=== PATIENT | female | born 1990 | race American Indian/Alaskan Native ===

== ENCOUNTER 2021-02-23 09:53 | Outpatient (CLI) | payer OTHER ==
[2021-02-23 10:46] VITALS: BP 135/81
[2021-02-23] MEDS ORDERED: LACTATED RINGERS 1,000 ML ONE (11:03)
[2021-02-23 11:52] LABS: Basophils % (Auto) 0.2 % (0.0-1.8); Eosinophils # (Auto) 0.1 K/mm3 (0.0-0.4); Eosinophils % (Auto) 0.8 % (0.0-4.3); Hematocrit 35.5 % (30.3-42.9); Hemoglobin 11.2 gm/dl (10.1-14.3); Lymphocytes % (Auto) 12.8 % (13.4-35.0); Mean Corpuscular HGB Conc 32 % (30-34); Mean Corpuscular Volume 94 fl (79-97); Monocytes # (Auto) 0.4 K/mm3 (0.0-0.8); Platelet Count 236 K/mm3 (140-440); Red Blood Count 3.76 M/mm3 (3.65-5.03); Red Cell Distribution Width 13.5 % (13.2-15.2)
[2021-02-23] MEDS ORDERED: LACTATED RINGERS 1000 ML IV SOLN IV SCH (12:30)
[2021-02-23 13:39] LABS: Bacteria,Urine 2+ /HPF (Negative); Bilirubin,Urine NEG (Negative); Blood,Urine LG (Negative); Color,Urine Yellow (Yellow); Mucus,Urine 1+ /HPF; Urobilinogen,Urine < 2.0 mg/dL (<2.0)
--- NOTE | 2021-02-23 17:59 | Ultrasound Report ---
OB ultrasound INDICATION: Vaginal bleeding FINDINGS: There is a single live intrauterine in cephalic position. PAVEL measures 10.5 cm. G rade 2 placenta posterior in location. heart rate is 1 61 bpm. Ultrasound age 20 weeks 4 days. Estimated weight 1113 g. Biophysical profile 8 out of 8 IMPRESSION: Single live intrauterine . Biophysical profile 8 out of 8 Signer Name: Adria Cormier MD Signed: 02/23/2021 5:54 PM Workstation Name: [facility]
--- NOTE | 2021-02-23 17:59 | Ultrasound Report ---
OB ultrasound INDICATION: Vaginal bleeding FINDINGS: There is a single live intrauterine in cephalic position. PAVEL measures 10.5 cm. G rade 2 placenta posterior in location. heart rate is 1 61 bpm. Ultrasound age 20 weeks 4 days. Estimated weight 1113 g. Biophysical profile 8 out of 8 IMPRESSION: Single live intrauterine . Biophysical profile 8 out of 8 Signer Name: Adria Cormier MD Signed: 02/23/2021 5:54 PM Workstation Name: [facility]
== END 2021-02-23 14:50 | disposition home or self-care (01) ==
LOC: TRG 09:53 → APU 09:54 → TRG 14:50
PROVIDERS: ATTEND Obstetrics & Gynecology
DX: O46.93 Antepartum hemorrhage, unspecified, third trimester (principal); Z3A.29 29 weeks gestation of pregnancy
CPT/HCPCS: 36415; 59025; 76816; 76819; 81001; 85025; 87086; 96360; J7120